=== PATIENT | male | born 1990 | race Caucasian/White ===

== ENCOUNTER 2016-07-25 19:51 | Emergency (ER) | payer SELFPAY ==
[2016-07-25] MEDS ORDERED: HYDROCODONE/ACETAMINOPHEN 5-325 MG 6 TAB/DSPK PO PRN (20:10)
[2016-07-25] MEDS ORDERED: PENICILLIN V POTASSIUM 500 MG TABLET PO ONE (20:10)
--- NOTE | 2016-07-25 20:13 | ER Document Report ---
HPI - HPI Patient complains to provider of: dental pain Onset: Other - 3 days Quality of pain: Achy Severity: Moderate Pain Level: 3 Context: Patient presents to the emergency department with complaints of dental pain for the past 3 days. Reports pain increased last night. He reports he is working here climbing [employer] but lives in [place]. He also reports he doesn't have dental insurance. He reports he has bad teeth but cannot afford to have them fixed. He denies fever vomiting diarrhea. Associated Symptoms: None Exacerbated by: Denies Relieved by: Denies Similar symptoms previously: No Recently seen / treated by doctor: No - DERM Skin Color: Normal Past Medical History - General Information source: Patient - Social History Smoking Status: Former Smoker - quit 2 years ago Cigarette use (# per day): No Frequency of alcohol use: Rare Drug Abuse: None Occupation: [employer] Family History: None Patient has suicidal ideation: No Patient has homicidal ideation: No - Medical History Medical History: Negative Surgical Hx: Negative Vertical Provider Document - CONSTITUTIONAL Agree With Documented VS: Yes Exam Limitations: No Limitations General Appearance: WD/WN, No Apparent Distress - INFECTION CONTROL TRAVEL OUTSIDE OF THE [place] IN LAST 30 DAYS: No - HEENT HEENT: Atraumatic, Normocephalic. negative: Pharyngeal Erythema Mouth Diagram: 1 - small erythemic nodule, no pustule, c/o pain. opens mouth wide, clear voice , no induration, no swelling - NECK Neck: Normal Inspection, Supple - RESPIRATORY Respiratory: Breath Sounds Normal - MUSCULOSKELETAL/EXTREMETIES Musculoskeletal/Extremeties: JEFF LEE - NEURO Level of Consciousness: Awake, Alert, Appropriate Motor/Sensory: No Motor Deficit - DERM Integumentary: Warm, Dry Course - Re-evaluation Re-evalutation: 07/25/16 20:18 Discussed different treatment options with patient to fix his teeth. He was instructed to follow up with local dentist when he returns to [place] to discuss payment options or if available for [facility]. Discharge - Discharge Clinical Impression: Pain, dental, elevated blood pressure Condition: Stable Disposition: HOME, SELF-CARE Instructions: Oral Narcotic Medication ([facility]), Penicillin V K ([facility]), Toothache ( [facility]) Additional Instructions: *You have been evaluated for dental pain *Monitor your blood pressure. Your blood pressure was elevated today. This may be because you were anxious, in pain or because you need medication. It is important to follow up with your primary care provider for full evaluation. *Take medications as prescribed *Follow up with a dentist when you get back to [place] to discuss options of care *Return to ED for worsening condition, changes, needs Prescriptions: Penicillin V Potassium [Penicillin Vk 500 mg Tablet] 500 mg PO BID #20 tablet Forms: Elevated Blood Pressure
[2016-07-25 20:35] VITALS: BP 134/81
== END 2016-07-25 20:27 | disposition home or self-care (01) ==
LOC: ER 19:51
DX: K08.89 Other specified disorders of teeth and supporting structures (principal); R03.0 Elevated blood-pressure reading, without diagnosis of hypertension; Z87.891 Personal history of nicotine dependence
CPT/HCPCS: 99282